=== PATIENT | male | born 1945 | race Caucasian/White ===

== ENCOUNTER 2020-06-24 10:21 | Emergency (ER) | payer OTHER ==
[~2020-06-24] VITALS: Ht 188 cm; Wt 136.1 kg
[2020-06-24 10:24] VITALS: BP_SYST 108; BP_SYST 149
[2020-06-24 11:01] LABS: BASOPHILS % (AUTO) 0.7 % (0.0-2.0); HEMATOCRIT 43.2 % (36-54); HEMOGLOBIN 14.5 g/dL (14.0-18.0); LYMPHOCYTES # (AUTO) 0.8 K/uL (1.0-5.5); LYMPHOCYTES % (AUTO) 17.6 % (20.5-51.5); MEAN CORPUSCULAR HEMOGLOBIN 30 pg (27-31); MEAN CORPUSCULAR HGB CONC 34 % (32-36); MEAN CORPUSCULAR VOLUME 89 fL (79.0-98.0); MONOCYTES # (AUTO) 0.5 K/uL (0.0-1.0); MONOCYTES % (AUTO) 11.4 % (1.7-9.3); NEUTROPHILS # (AUTO) 3.1 K/uL (1.8-7.7); NEUTROPHILS % (AUTO) 70.3 % (40.0-70.0); PLATELET COUNT (AUTO) 145 K/uL (130-430); RED BLOOD CELL COUNT(AUTO) 4.86 MIL/uL (4.2-6.2); RED CELL DISTRIBUTION WIDTH 13.1 % (9.0-15.0); WHITE BLOOD COUNT (AUTO) 4.4 K/uL (4.8-10.8)
[2020-06-24] MEDS: NACL 0.9% 1,000 ML IV ONE (11:11)
[2020-06-24 11:19] LABS: ANION GAP 15 (5-15); CHLORIDE 94 mmol/L (98-107); CREATININE 1.59 mg/dL (0.55-1.30); GLUCOSE 214 mg/dL (70-99); SODIUM SERUM 131 mmol/L (136-145); UREA NITROGEN, BLOOD 39 mg/dL (8-21)
[2020-06-24 11:25] LABS: ALANINE AMINOTRANSFERASE 34 U/L (12-78); ASPARTATE AMINOTRANSFERASE 40 U/L (10-37); TOTAL BILIRUBIN 0.6 mg/dL (0.0-1.0)
[2020-06-24 13:59] VITALS: BP_SYST 118
== END 2020-06-24 14:00 | disposition home or self-care (01) ==
LOC: SED 10:21
DX: U07.1 COVID-19 (principal); R19.7 Diarrhea, unspecified
CPT/HCPCS: 36415; 80053; 82962; 85025; 87426; 96360; 99283; J7030

== ENCOUNTER 2020-06-29 15:03 | Inpatient (IN) | payer OTHER, SELFPAY ==
[~2020-06-29] VITALS: Ht 172.7 cm; Wt 122.5 kg
[2020-06-29 15:05] VITALS: BP_SYST 115
[2020-06-29] MEDS ORDERED: NS 500 ML IV ONE (16:30)
[2020-06-29 16:50] LABS: BASOPHILS % (AUTO) 0.2 % (0.0-2.0); HEMATOCRIT 45.1 % (36-54); HEMOGLOBIN 15.3 g/dL (14.0-18.0); LYMPHOCYTES # (AUTO) 0.6 K/uL (1.0-5.5); MEAN CORPUSCULAR HEMOGLOBIN 31 pg (27-31); MEAN CORPUSCULAR HGB CONC 34 % (32-36); MEAN CORPUSCULAR VOLUME 90 fL (79.0-98.0); MONOCYTES # (AUTO) 0.9 K/uL (0.0-1.0); MONOCYTES % (AUTO) 9.9 % (1.7-9.3); NEUTROPHILS # (AUTO) 7.9 K/uL (1.8-7.7); NEUTROPHILS % (AUTO) 83.9 % (40.0-70.0); PLATELET COUNT (AUTO) 327 K/uL (130-430); RED BLOOD CELL COUNT(AUTO) 5.02 MIL/uL (4.2-6.2); RED CELL DISTRIBUTION WIDTH 13.6 % (9.0-15.0); WHITE BLOOD COUNT (AUTO) 9.4 K/uL (4.8-10.8)
[2020-06-29 17:10] LABS: PROTHROMBIN TIME 10.5 SECS (9.5-12.5)
[2020-06-29] MEDS ORDERED: INSULIN REGULAR, HUMAN 10 UNITS/0.1 ML INJ IVP ONE (17:15)
[2020-06-29] MEDS ORDERED: INSULIN REGULAR, HUMAN 100 UNITS in NS 99 ML IV ONE ×2 (17:15)
[2020-06-29] MEDS ORDERED: NACL 0.9% 1,000 ML IV ONE (17:15)
[2020-06-29 17:28] LABS: ANION GAP 19 (5-15); CALCIUM 9.1 mg/dL (8.4-11.0); CHLORIDE 100 mmol/L (98-107); CREATININE 1.39 mg/dL (0.55-1.30); GLUCOSE 399 mg/dL (70-99); POTASSIUM 4.9 mmol/L (3.5-5.1); SODIUM SERUM 136 mmol/L (136-145); UREA NITROGEN, BLOOD 39 mg/dL (8-21)
[2020-06-29 17:40] LABS: ALANINE AMINOTRANSFERASE 30 U/L (12-78); ALBUMIN 2.4 g/dL (3.4-4.8); ASPARTATE AMINOTRANSFERASE 46 U/L (10-37); LACTATE DEHYDROGENASE 432 U/L (85-227)
[2020-06-29] MEDS ORDERED: DEXAMETHASONE SOD PHOSPHATE 10 MG/ML VIAL IVP ONE (18:00)
[2020-06-29] MEDS ORDERED: cefTRIAXone 1 GM in D5W 50 ML IV ONE (18:00)
[2020-06-29] MEDS ORDERED: AZITHROMYCIN 500 MG in NS 250 ML IV ONE (18:00)
[2020-06-29 18:21] LABS: C-REACTIVE PROTEIN QUANT 22.8 mg/dL (0-0.5)
[2020-06-29] MEDS ORDERED: AZITHROMYCIN 500 MG/VIAL (ZITHROMAX) IV ONE (18:25)
[2020-06-29] MEDS ORDERED: cefTRIAXone 1 GM VIAL ONE (18:25)
[2020-06-29] MEDS ORDERED: DEXTROSE 50% JECT 50 ML DISP.SYRIN IVP PRN (20:15)
[2020-06-29] MEDS ORDERED: ALBUTEROL SULFATE 0.083% 2.5 MG/3 ML VIAL.NEB INH PRN (20:15)
[2020-06-29] MEDS ORDERED: IPRATROPIUM BROM 0.5 MG/2.5 ML VIAL.NEB (ATROVENT) INH PRN (20:15)
[2020-06-29 21:05] LABS: ANION GAP 17 (5-15); CALCIUM 8.6 mg/dL (8.4-11.0); CHLORIDE 105 mmol/L (98-107); CREATININE 1.41 mg/dL (0.55-1.30); GLUCOSE 262 mg/dL (70-99); POTASSIUM 4.5 mmol/L (3.5-5.1); SODIUM SERUM 141 mmol/L (136-145); UREA NITROGEN, BLOOD 41 mg/dL (8-21)
[2020-06-29] MEDS: NACL 0.9% 1,000 ML IV SCH (21:55)
[2020-06-29 22:54] LABS: BILIRUBIN,URINE 1+ (NEGATIVE); BLOOD, URINE 2+ (NEGATIVE); COLOR,URINE YELLOW (YELLOW); GLUCOSE,URINE 2+ (NEGATIVE); KETONES,URINE 2+ (NEGATIVE); LEUKOCYTE ESTERASE ,URINE NEGATIVE (NEGATIVE); NITRITE, URINE NEGATIVE (NEGATIVE); PROTEIN URINE 1+ (NEGATIVE); UROBILINOGEN,URINE 0.2 (0.2-1.0)
[2020-06-29 22:56] LABS: CLARITY/URINE SLIGHTLY CLOUDY (CLEAR)
[2020-06-29 23:24] LABS: BACTERIA,URINE FEW /HPF (None Seen); WBC,URINE 0-3 /HPF (0-3)
[2020-06-29 23:25] LABS: FINE GRANULAR CASTS,URINE 0-10 /LPF (None Seen); HYALINE CASTS, URINE 0-10 /LPF (None Seen)
[2020-06-30] MEDS ORDERED: IPRATROPIUM BROM 0.5 MG/2.5 ML VIAL.NEB (ATROVENT) INH SCH (01:00)
[2020-06-30] MEDS ORDERED: ALBUTEROL SULFATE 0.083% 2.5 MG/3 ML VIAL.NEB INH SCH (01:00)
[2020-06-30] MEDS ORDERED: cloNIDine HCL 0.1 MG TABLET PO ONE (05:30)
[2020-06-30] MEDS ORDERED: cloNIDine HCL 0.1 MG TABLET ONE (06:11)
[2020-06-30] MEDS: NACL 0.9% 1,000 ML IV SCH ×2 (06:19→17:25)
[2020-06-30 06:49] LABS: BASOPHILS % (AUTO) 0.1 % (0.0-2.0); EOSINOPHILS % (AUTO) 0.1 % (0.0-4.0); HEMATOCRIT 42.5 % (36-54); HEMOGLOBIN 14.5 g/dL (14.0-18.0); LYMPHOCYTES # (AUTO) 0.3 K/uL (1.0-5.5); LYMPHOCYTES % (AUTO) 3.3 % (20.5-51.5); MEAN CORPUSCULAR HEMOGLOBIN 30 pg (27-31); MEAN CORPUSCULAR HGB CONC 34 % (32-36); MEAN CORPUSCULAR VOLUME 89 fL (79.0-98.0); MONOCYTES # (AUTO) 0.6 K/uL (0.0-1.0); MONOCYTES % (AUTO) 6.5 % (1.7-9.3); NEUTROPHILS # (AUTO) 7.7 K/uL (1.8-7.7); PLATELET COUNT (AUTO) 284 K/uL (130-430); RED BLOOD CELL COUNT(AUTO) 4.78 MIL/uL (4.2-6.2); RED CELL DISTRIBUTION WIDTH 13.3 % (9.0-15.0); WHITE BLOOD COUNT (AUTO) 8.5 K/uL (4.8-10.8)
[2020-06-30 07:01] LABS: ALANINE AMINOTRANSFERASE 28 U/L (12-78); ALBUMIN 2.1 g/dL (3.4-4.8); ANION GAP 13 (5-15); ASPARTATE AMINOTRANSFERASE 42 U/L (10-37); CALCIUM 8.1 mg/dL (8.4-11.0); CHLORIDE 109 mmol/L (98-107); CREATININE 1.13 mg/dL (0.55-1.30); GLUCOSE 254 mg/dL (70-99); POTASSIUM 4.3 mmol/L (3.5-5.1); SODIUM SERUM 142 mmol/L (136-145); TOTAL BILIRUBIN 0.6 mg/dL (0.0-1.0); UREA NITROGEN, BLOOD 39 mg/dL (8-21)
[2020-06-30 07:03] VITALS: BP_SYST 185
[2020-06-30] MEDS ORDERED: ENOXAPARIN SODIUM 40 MG/0.4 ML SYRINGE SUBCUT ONE (09:30)
[2020-06-30] MEDS: DEXAMETHASONE SOD PHOSPHATE 10 MG/ML VIAL IVP SCH (15:32)
[2020-06-30] MEDS: INSULIN REGULAR, HUMAN 100 UNITS/ML, 10 ML VIAL (humuLIN R) SUBCUT PRN ×2 (17:10→22:49)
[2020-06-30] MEDS: AZITHROMYCIN 500 MG in NS 250 ML IV SCH (17:40)
[2020-06-30] MEDS: cefTRIAXone 1 GM in D5W 50 ML IV SCH (17:40)
[2020-06-30 17:48] LABS: ANION GAP 13 (5-15); CALCIUM 7.9 mg/dL (8.4-11.0); CHLORIDE 112 mmol/L (98-107); CREATININE 1.06 mg/dL (0.55-1.30); GLUCOSE 183 mg/dL (70-99); SODIUM SERUM 143 mmol/L (136-145); UREA NITROGEN, BLOOD 35 mg/dL (8-21)
[2020-06-30] MEDS ORDERED: IPRATROPIUM BROM 0.5 MG/2.5 ML VIAL.NEB (ATROVENT) INH PRN (19:00)
[2020-06-30] MEDS ORDERED: ALBUTEROL MDI INHALATION 8 GM INH INH ONE (19:00)
[2020-06-30] MEDS: ALBUTEROL MDI INHALATION 8 GM INH INH SCH (19:56)
[2020-06-30] MEDS ORDERED: LORazepam 2 MG/ML VIAL IVP ONE (20:45)
[2020-06-30] MEDS ORDERED: LORazepam 2 MG/ML VIAL ONE (21:05)
[2020-06-30] MEDS ORDERED: DILTIAZEM HCL 25 MG/5 ML VIAL ONE (22:40)
[2020-06-30] MEDS ORDERED: INSULIN REGULAR, HUMAN 10 UNITS/0.1 ML INJ ONE (22:44)
[2020-06-30] MEDS ORDERED: DILTIAZEM HCL 25 MG/5 ML VIAL IVP ONE (22:45)
[2020-07-01] MEDS ORDERED: LABETALOL 100 MG/ 20ML VIAL IVP ONE
[2020-07-01] MEDS ORDERED: LABETALOL 100 MG/ 20ML VIAL ONE (00:02)
[2020-07-01] MEDS ORDERED: LORazepam 2 MG/ML VIAL ONE (00:10)
[2020-07-01] MEDS ORDERED: LORazepam 2 MG/ML VIAL IVP ONE (00:15)
[2020-07-01] MEDS ORDERED: PROPOFOL DRIP 100 ML IV ONE (01:05)
[2020-07-01] MEDS ORDERED: ETOMIDATE 20 MG/ 10 ML VIAL (AMIDATE) IVP ONE ×2 (01:30→14:11)
[2020-07-01] MEDS ORDERED: SUCCINYLCHOLINE CHLORIDE 20 MG/ML(QUELICIN) IVP ONE ×2 (01:30→14:11)
[2020-07-01] MEDS: PROPOFOL DRIP 100 ML IV PRN ×4 (01:38→18:27)
[2020-07-01] MEDS: NACL 0.9% 1,000 ML IV SCH ×3 (02:00→22:22)
[2020-07-01 05:45] VITALS: BP_SYST 109
[2020-07-01 05:50] VITALS: BP_SYST 122
[2020-07-01 07:15] VITALS: BP_SYST 158
[2020-07-01] MEDS: ALBUTEROL MDI INHALATION 8 GM INH INH SCH ×4 (07:15→22:05)
[2020-07-01] MEDS: ENOXAPARIN SODIUM 40 MG/0.4 ML SYRINGE SUBCUT SCH (09:00)
[2020-07-01 12:28] LABS: BASOPHILS % (AUTO) 0.2 % (0.0-2.0); EOSINOPHILS % (AUTO) 0.2 % (0.0-4.0); HEMATOCRIT 40.6 % (36-54); HEMOGLOBIN 13.4 g/dL (14.0-18.0); LYMPHOCYTES # (AUTO) 0.4 K/uL (1.0-5.5); MEAN CORPUSCULAR HEMOGLOBIN 30 pg (27-31); MEAN CORPUSCULAR HGB CONC 33 % (32-36); MEAN CORPUSCULAR VOLUME 91 fL (79.0-98.0); MONOCYTES # (AUTO) 0.6 K/uL (0.0-1.0); MONOCYTES % (AUTO) 7.7 % (1.7-9.3); NEUTROPHILS # (AUTO) 6.1 K/uL (1.8-7.7); NEUTROPHILS % (AUTO) 85.9 % (40.0-70.0); PLATELET COUNT (AUTO) 216 K/uL (130-430); RED BLOOD CELL COUNT(AUTO) 4.48 MIL/uL (4.2-6.2); RED CELL DISTRIBUTION WIDTH 13.6 % (9.0-15.0); WHITE BLOOD COUNT (AUTO) 7.1 K/uL (4.8-10.8)
[2020-07-01 13:07] LABS: ANION GAP 15 (5-15); CALCIUM 8.1 mg/dL (8.4-11.0); CHLORIDE 110 mmol/L (98-107); GLUCOSE 365 mg/dL (70-99); SODIUM SERUM 144 mmol/L (136-145); UREA NITROGEN, BLOOD 37 mg/dL (8-21)
[2020-07-01 13:08] LABS: CREATININE 1.42 mg/dL (0.55-1.30)
[2020-07-01 13:16] LABS: ALANINE AMINOTRANSFERASE 35 U/L (12-78); ASPARTATE AMINOTRANSFERASE 55 U/L (10-37); TOTAL BILIRUBIN 0.8 mg/dL (0.0-1.0)
[2020-07-01] MEDS: INSULIN REGULAR, HUMAN 100 UNITS/ML, 10 ML VIAL (humuLIN R) SUBCUT PRN ×2 (13:35→16:59)
[2020-07-01 14:45] VITALS: BP_SYST 131
[2020-07-01] MEDS: DEXAMETHASONE SOD PHOSPHATE 10 MG/ML VIAL IVP SCH (16:23)
[2020-07-01] MEDS: AZITHROMYCIN 500 MG in NS 250 ML IV SCH (17:01)
[2020-07-01] MEDS: cefTRIAXone 1 GM in D5W 50 ML IV SCH (17:01)
[2020-07-01 20:00] VITALS: BP_SYST 163
[2020-07-01] MEDS ORDERED: LORazepam 2 MG/ML VIAL IVP PRN (21:15)
[2020-07-01 23:25] VITALS: BP_SYST 150
[2020-07-02] VITALS (27 sets, daily range): BP systolic 101–183
[2020-07-02] MEDS: PROPOFOL DRIP 100 ML IV PRN ×5 (01:40→17:38)
[2020-07-02] MEDS: INSULIN REGULAR, HUMAN 100 UNITS/ML, 10 ML VIAL (humuLIN R) SUBCUT PRN ×3 (06:50→18:26)
[2020-07-02] MEDS: ALBUTEROL MDI INHALATION 8 GM INH INH SCH ×3 (07:20→19:30)
[2020-07-02] MEDS: NACL 0.9% 1,000 ML IV SCH ×2 (08:15→17:38)
[2020-07-02] MEDS ORDERED: DEXAMETHASONE SOD PHOSPHATE 4 MG/ML VIAL ONE (09:15)
[2020-07-02] MEDS ORDERED: PANTOPRAZOLE SODIUM 40 MG/VIAL (PROTONIX) ONE (09:16)
[2020-07-02] MEDS: ENOXAPARIN SODIUM 40 MG/0.4 ML SYRINGE SUBCUT SCH (09:40)
[2020-07-02] MEDS: DEXAMETHASONE SOD PHOSPHATE 10 MG/ML VIAL IVP SCH (16:00)
[2020-07-02] MEDS: cefTRIAXone 1 GM in D5W 50 ML IV SCH (17:39)
[2020-07-02] MEDS: AZITHROMYCIN 500 MG in NS 250 ML IV SCH (18:23)
[2020-07-03] VITALS (38 sets, daily range): BP systolic 105–191
[2020-07-03] MEDS: INSULIN REGULAR, HUMAN 100 UNITS/ML, 10 ML VIAL (humuLIN R) SUBCUT PRN ×2 (00:42→05:49)
[2020-07-03] MEDS: ALBUTEROL MDI INHALATION 8 GM INH INH SCH ×4 (01:36→19:00)
[2020-07-03] MEDS: NACL 0.9% 1,000 ML IV SCH ×2 (01:41→13:19)
[2020-07-03] MEDS: PROPOFOL DRIP 100 ML IV PRN ×5 (05:30→22:53)
[2020-07-03] MEDS: ENOXAPARIN SODIUM 40 MG/0.4 ML SYRINGE SUBCUT SCH (09:40)
[2020-07-03 12:10] LABS: BASOPHILS % (AUTO) 0.2 % (0.0-2.0); EOSINOPHILS # (AUTO) 0.1 K/uL (0.0-0.4); EOSINOPHILS % (AUTO) 0.9 % (0.0-4.0); HEMATOCRIT 40.2 % (36-54); HEMOGLOBIN 13.2 g/dL (14.0-18.0); LYMPHOCYTES # (AUTO) 0.5 K/uL (1.0-5.5); LYMPHOCYTES % (AUTO) 5.1 % (20.5-51.5); MEAN CORPUSCULAR HEMOGLOBIN 30 pg (27-31); MEAN CORPUSCULAR HGB CONC 33 % (32-36); MEAN CORPUSCULAR VOLUME 91 fL (79.0-98.0); MONOCYTES # (AUTO) 0.8 K/uL (0.0-1.0); NEUTROPHILS # (AUTO) 8.9 K/uL (1.8-7.7); NEUTROPHILS % (AUTO) 85.8 % (40.0-70.0); PLATELET COUNT (AUTO) 153 K/uL (130-430); RED BLOOD CELL COUNT(AUTO) 4.42 MIL/uL (4.2-6.2); RED CELL DISTRIBUTION WIDTH 13.7 % (9.0-15.0); WHITE BLOOD COUNT (AUTO) 10.4 K/uL (4.8-10.8)
[2020-07-03 12:35] LABS: ALANINE AMINOTRANSFERASE 49 U/L (12-78); ALBUMIN 1.7 g/dL (3.4-4.8); ASPARTATE AMINOTRANSFERASE 125 U/L (10-37); CALCIUM 7.9 mg/dL (8.4-11.0); CHLORIDE 116 mmol/L (98-107); CREATININE 1.23 mg/dL (0.55-1.30); GLUCOSE 258 mg/dL (70-99); POTASSIUM 4.5 mmol/L (3.5-5.1); SODIUM SERUM 149 mmol/L (136-145); TOTAL BILIRUBIN 0.7 mg/dL (0.0-1.0); UREA NITROGEN, BLOOD 39 mg/dL (8-21)
[2020-07-03 12:43] LABS: ANION GAP 12 (5-15)
[2020-07-03] MEDS: DEXMEDETOMIDINE HCL 200 MCG in NS 48 ML IV PRN ×3 (13:16→15:20)
[2020-07-03] MEDS: DEXAMETHASONE SOD PHOSPHATE 10 MG/ML VIAL IVP SCH (16:00)
[2020-07-03] MEDS: AZITHROMYCIN 500 MG in NS 250 ML IV SCH (17:33)
[2020-07-03] MEDS: cefTRIAXone 1 GM in D5W 50 ML IV SCH (17:33)
[2020-07-04] VITALS: BP_SYST 105
[2020-07-04 01:00] VITALS: BP_SYST 93
[2020-07-04] MEDS: ALBUTEROL MDI INHALATION 8 GM INH INH SCH (01:53)
[2020-07-04 02:00] VITALS: BP_SYST 98
[2020-07-04 03:00] VITALS: BP_SYST 77; BP_SYST 82
== END 2020-07-04 04:21 | disposition expired | DRG 208 ==
LOC: SED 15:03 → SIC 17:59
PROVIDERS: ADMIT Internal Medicine Hospice and Palliative Medicine; ATTEND Internal Medicine Hospice and Palliative Medicine
PROC: 5A1945Z Respiratory Ventilation, 24-96 Consecutive Hours (ICD-10-PCS; principal; 2020-07-01)
PROC: 0BH17EZ Insertion of Endotracheal Airway into Trachea, Via Natural or Artificial Opening (ICD-10-PCS; 2020-07-01)
PROC: XW033E5 Introduction of Remdesivir Anti-infective into Peripheral Vein, Percutaneous Approach, New Technology Group 5 (ICD-10-PCS; 2020-07-01)
PROC: 02HV33Z Insertion of Infusion Device into Superior Vena Cava, Percutaneous Approach (ICD-10-PCS; 2020-07-03)
PROC: B548ZZA Ultrasonography of Superior Vena Cava, Guidance (ICD-10-PCS; 2020-07-03)
PROC: 5A12012 Performance of Cardiac Output, Single, Manual (ICD-10-PCS; 2020-07-04)
DX: U07.1 COVID-19 (principal); A41.9 Sepsis, unspecified organism; E11.10 Type 2 diabetes mellitus with ketoacidosis without coma; J96.01 Acute respiratory failure with hypoxia; J12.82 Pneumonia due to coronavirus disease 2019; G93.41 Metabolic encephalopathy; N17.9 Acute kidney failure, unspecified; I10 Essential (primary) hypertension; R41.0 Disorientation, unspecified; I46.9 Cardiac arrest, cause unspecified
CPT/HCPCS: 36415; 36600; 70450-TC; 71045; 76376; 80048; 80053; 81000-TC; 82550-TC; 82728; 82803-TC; 82962; 83605; 83615-TC; 83880; 84484; 85025; 85379; 85384-TC; 85610-TC; 85730-TC; 86140; 87040-TC; 87086; 93005; 94002; 94003; 94640; 96361; 96374; 99285; C1751; C9113; J0330; J0456; J0696; J1100; J1650; J1815; J2060; J2704; J3490; J7030; J7050; J7060; U0003